=== PATIENT | male | born 1985 | race Caucasian/White ===

== ENCOUNTER 2017-05-31 20:10 | Emergency (ER) | payer SELFPAY ==
--- NOTE | ~2017-05-31 | ER ---
PATIENT'S NAME: HAKAN [facility] AGE: 32 Y [address] ROOM: [place] [address] LOCATION: [facility] ADMIT DATE: 05/31/2017 ER/Outpatient Report DISCHARGE DATE: 05/31/2017 FAMILY PHYSICIAN: Physician, Unknown ATTENDING PHYSICIAN: Bill Lemos Time of Arrival: 2009 hours. Time of Exam: 2009 hours. CHIEF COMPLAINT: Laceration to the right hand. HISTORY OF PRESENT ILLNESS: The patient arrived to the ER accompanied by [place] [employer]. The patient apparently punched a car windshield today and needs to be cleared for [facility]. The patient denies any other injury with the incident. ALLERGIES: HE HAS NO KNOWN ALLERGIES. CURRENT MEDICATIONS: None. PAST MEDICAL HISTORY: Benign. PAST SURGERIES: Negative. SOCIAL HISTORY: The patient is reluctant to answer. Denies use of drugs and alcohol. The patient is unsure when his last tetanus shot was. PHYSICAL EXAMINATION: VITAL SIGNS: Blood pressure is 129/84, pulse of 96, respirations 16, temperature of 98.2, and O2 saturation was 97% on room air. GENERAL: He is awake, alert, and oriented x4. SKIN: [place], warm, and dry. RESPIRATIONS: Even and nonlabored. Lung sounds are clear throughout. HEART: Regular rate and rhythm. EXTREMITIES: The patient has a scratch to the right hand at the base of the 3rd finger, not actively bleeding at this time. LABORATORY DATA AND X-RAYS: X-ray was completed, no bony abnormality is seen. PATIENT'S NAME: SATSUMA [facility] AGE: 32 Y [address] ROOM: [place] [address] LOCATION: [facility] ADMIT DATE: 05/31/2017 ER/Outpatient Report DISCHARGE DATE: 05/31/2017 FAMILY PHYSICIAN: Physician, Unknown ATTENDING PHYSICIAN: Bill Lemos IMPRESSION: 1. Abrasion to the right hand. 2. Clearance for [facility]. PLAN: The patient is discharged with the [place] [employer] to go to [facility]. VERONICA FOLEY APRN FOR MD MICHELLE MYRICK/jose FONTANEZ: 05/31/2017 21:46:29 /[id number] d: 05/31/17 2238 t: 06/06/17 1436, OUTPATIENT REPORT
== END 2017-05-31 20:25 | disposition disaster alternative care site (69) ==
LOC: GMED 20:10
DX: S60.511A Abrasion of right hand, initial encounter (principal); W25.XXXA Contact with sharp glass, initial encounter